=== PATIENT | male | born 1970 | race Caucasian/White ===

== ENCOUNTER 2025-05-24 09:25 | Emergency (ER) | payer MEDICAID ==
[~2025-05-24] VITALS: Ht 182.9 cm; Wt 130.4 kg
[2025-05-24 09:40] VITALS: TEMP 97.9
[2025-05-24] MEDS ORDERED: AMLO-257 PO (09:45)
[2025-05-24] MEDS ORDERED: [UNRECOGNIZED DRUG - OTHER] PO (09:45)
[2025-05-24] MEDS ORDERED: ASPI-1450 PO (09:45)
[2025-05-24 10:05] LABS: PLATELET COUNT (AUTO) 266 K/uL (150-450); RED BLOOD CELL COUNT(AUTO) 4.80 MIL/uL (4.50-5.90); RED CELL DISTRIBUTION WIDTH 12.7 % (11.5-14.5); WHITE BLOOD COUNT (AUTO) 5.9 K/uL (4.5-11.0)
[2025-05-24 10:11] LABS: CALCIUM, TOTAL 8.6 mg/dL (8.8-10.5); CREATININE 0.70 mg/dL (0.60-1.30); GLOMERULAR FILTR. RATE CALC > 60 mL/min (>60); GLUCOSE,RANDOM 227 mg/dL (70-110); SODIUM SERUM 138 mmol/L (136-145); UREA NITROGEN, BLOOD 10 mg/dL (7-18)
[2025-05-24 10:14] LABS: ASPARTATE AMINOTRANSFERASE 27 U/L (15-37); CREATINE KINASE, TOTAL ONLY 155 U/L (39-308); TOTAL PROTEIN, SERUM 7.3 g/dL (6.4-8.2)
[2025-05-24 10:21] LABS: TROPONIN I-HIGH SENSITIVITY Less Than 4 ng/L (<76)
[2025-05-24 12:53] LABS: TROPONIN I-HIGH SENSITIVITY 6 ng/L (<76)
[2025-05-24 13:16] VITALS: BP 116/74; PULSE 65; RESP 16; O2SAT 96
== END 2025-05-24 13:23 | disposition short-term general hospital (02) ==
LOC: EMS 09:37
DX: R07.89 Other chest pain (principal); R06.02 Shortness of breath; R06.01 Orthopnea; R55 Syncope and collapse; E78.00 Pure hypercholesterolemia, unspecified; I10 Essential (primary) hypertension; I25.10 Atherosclerotic heart disease of native coronary artery without angina pectoris; Z79.82 Long term (current) use of aspirin; Z88.5 Allergy status to narcotic agent; Z95.5 Presence of coronary angioplasty implant and graft; Z79.899 Other long term (current) drug therapy
CPT/HCPCS: 71045; 80048; 80076; 82550; 83735; 83880; 84484; 85025; 85610; 85730; 93005; 93306; 99285; 36415-L1; 36415-TC